=== PATIENT | female | born 1935 | race Caucasian/White ===

== ENCOUNTER → 2023-06-28 09:22 | Outpatient (REF) | payer OTHER, SELFPAY | LOC: RAD 09:22 | PROVIDERS: ATTENDING PHYSICIAN Physician Assistant Medical | DX: E55.9 Vitamin D deficiency, unspecified (principal); Z91.81 History of falling | CPT/HCPCS: 77080 ==

== ENCOUNTER → 2023-09-28 13:43 | Outpatient (REF) | payer OTHER, SELFPAY | LOC: HWRCS 13:43 | PROVIDERS: ATTENDING PHYSICIAN Internal Medicine Interventional Cardiology; FAMILY PHYSICIAN Physician Assistant Medical | DX: I35.1 Nonrheumatic aortic (valve) insufficiency (principal) | CPT/HCPCS: 93306 ==

== ENCOUNTER → 2024-01-22 10:57 | Outpatient (REF) | payer OTHER, SELFPAY | LOC: RAD 10:57 | PROVIDERS: ATTENDING PHYSICIAN Family Medicine | DX: M54.41 Lumbago with sciatica, right side (principal); M25.551 Pain in right hip; M25.552 Pain in left hip | CPT/HCPCS: 72110; 73522 ==

== ENCOUNTER → 2024-02-09 13:16 | Outpatient (REF) | payer OTHER, SELFPAY | LOC: HWRAD 13:16 | PROVIDERS: ATTENDING PHYSICIAN Internal Medicine Endocrinology, Diabetes & Metabolism; FAMILY PHYSICIAN Physician Assistant Medical | DX: E04.2 Nontoxic multinodular goiter (principal) | CPT/HCPCS: 76536 ==

== ENCOUNTER 2024-05-08 17:37 | Emergency (ER) | payer OTHER, SELFPAY ==
[2024-05-08 17:42] VITALS: BP 186/80
--- NOTE | 2024-05-08 17:48 | ED.GENMED ---
ED Provider Triage
<Kristofer Avendaño PA-C - Last Filed: 05/08/24 17:48>
-
Patient seen by provider in Triage?: Seen in Triage
Attestation: A medical screening examination has been initiated by a qualified medical provider. Based on the assessment performed at this time, it has been determined that an emergent medical condition may exist and the patient has been informed
that further medical evaluation and possible additional diagnostic testing may be needed.
HPI: 88-year-old female presents with intermittent headaches and flashes of light that she has been seeing out of both eyes over the past week. Seen by family doctor today and sent in for further evaluation. She denies chest pain. No shortness of
breath. No fever. She is not anticoagulated.
Looks well on assessment in triage. CT head ordered EKG and basic labs ordered
GENERAL: Alert , in no apparent distress
EYE: No visual abnormalities.
NECK: Trachea midline
ENT: No visible abnormalities.
LUNGS: No acute respiratory distress
NEUROLOGICAL: Alert and oriented
SKIN: Skin intact. No visible changes.
MUSCULOSKELETAL: Moving extremities normally
PSYCH: Normal and appropriate interaction.
This is a medical evaluation conducted in person to initiate diagnostic evaluation and provide initial therapeutics. Please see further documentation by the treating clinician.
History of Present Illness
<Kristofer Avendaño PA-C - Last Filed: 05/08/24 17:48>
General
Chief Complaint: Headache
Time Seen by Provider: 05/09/24 03:07
<Sylvain Villa DO - Last Filed: 05/09/24 06:42>
General
Source: patient and family (Daughter)
History of Present Illness
History of Present Illness:
88-year-old female brought to the emergency room by her daughter for evaluation of headache, high blood pressure and floaters. Patient's primary care doctor told her to come to the emergency room and suggested she get an ultrasound of her neck.
Patient does not monitor her blood pressure at home because her device is not working but it appears her primary care doctor thought that her blood pressure might be elevated based upon her symptoms. Patient denies any chest pain or shortness of
breath. She has been compliant with her blood pressure medication. She typically takes it at night.
Phy Exam
<Sylvain Villa DO - Last Filed: 05/09/24 06:42>
Physical Exam
Physical Exam:
General: Awake, Alert, Oriented X3. No acute distress.
Vitals: Hypertensive initially in triage with lower blood pressure now the treatment area
Head: Atraumatic
Eyes: Pupils equal, EOMI
Throat: Airway intact, no exudates
Neck: Trachea midline
Lungs: Clear and equal b/l
Heart: Regular rate, no murmurs
Abd: Soft, Nontender, No pulsatile mass
Neuro: Cranial nerves intact, muscle strength equal bilaterally, cerebellar exam normal
Skin: Warm, dry, no rash
Extremities: pulses equal b/l, no edema
Course
<Kristofer Avendaño PA-C - Last Filed: 05/08/24 17:48>
Orders/Labs/Results
Orders:
Orders
05/08/24 17:44
CT Head W/o Iv Contrast Urgent
Comment:
Reason For Exam: headache, vision change
05/08/24 17:45
Electrocardiogram (*1) Urgent
Reason for Study: TIA/Stroke
EKG- Treatment ONCE
05/08/24 17:59
Complete Blood Count/With Diff Urgent
05/08/24 18:00
Comprehensive Metabolic Panel Urgent
05/09/24 03:18
CT Head & Neck Angio W/wo IV Urgent
Comment:
Reason For Exam: visual disturbance
Abnormal Lab Results
05/08/24 05/08/24
17:59 18:00
WBC 4.1 L 10^3/uL
(4.8-10.8)
MPV 12.4 H fL
(7.4-10.4)
Absolute Lymphs (auto) 1.0 L 10^3/uL
(1.2-3.4)
Sodium 134 L mmol/L
(135-145)
Chloride 96 L mmol/L
(98-107)
Carbon Dioxide 31 H mmol/L
(22-30)
Glucose 134 H mg/dl
(70-99)
05/08/24 17:59
05/08/24 18:00
Vital Signs
Initial and Last Documented VS:
Initial Vital Signs
Temp Pulse Resp BP Pulse Ox
97.6 F 99 18 186/80 98
05/08/24 17:42 05/08/24 17:42 05/08/24 17:42 05/08/24 17:42 05/08/24 17:42
Last Documented Vital Signs
Temp Pulse Resp BP Pulse Ox
97.4 F 88 16 117/79 97
05/08/24 20:19 05/09/24 03:59 05/09/24 03:59 05/09/24 03:59 05/09/24 01:19
<Sylvain HTom Villa DO - Last Filed: 05/09/24 06:42>
Orders/Labs/Results
Orders:
Orders
05/08/24 17:44
CT Head W/o Iv Contrast Urgent
Comment:
Reason For Exam: headache, vision change
05/08/24 17:45
Electrocardiogram (*1) Urgent
Reason for Study: TIA/Stroke
EKG- Treatment ONCE
05/08/24 17:59
Complete Blood Count/With Diff Urgent
05/08/24 18:00
Comprehensive Metabolic Panel Urgent
05/09/24 03:18
CT Head & Neck Angio W/wo IV Urgent
Comment:
Reason For Exam: visual disturbance
Abnormal Lab Results
05/08/24 05/08/24
17:59 18:00
WBC 4.1 L 10^3/uL
(4.8-10.8)
MPV 12.4 H fL
(7.4-10.4)
Absolute Lymphs (auto) 1.0 L 10^3/uL
(1.2-3.4)
Sodium 134 L mmol/L
(135-145)
Chloride 96 L mmol/L
(98-107)
Carbon Dioxide 31 H mmol/L
(22-30)
Glucose 134 H mg/dl
(70-99)
05/08/24 17:59
05/08/24 18:00
Vital Signs
Initial and Last Documented VS:
Initial Vital Signs
Temp Pulse Resp BP Pulse Ox
97.6 F 99 18 186/80 98
05/08/24 17:42 05/08/24 17:42 05/08/24 17:42 05/08/24 17:42 05/08/24 17:42
Last Documented Vital Signs
Temp Pulse Resp BP Pulse Ox
97.4 F 88 16 117/79 97
05/08/24 20:19 05/09/24 03:59 05/09/24 03:59 05/09/24 03:59 05/09/24 01:19
<Sylvain HTom Villa, DO - Last Filed: 05/09/24 06:42>
MDM/Problems Addressed
Differential Diagnosis Includes:
Uncontrolled hypertension, floaters, carotid stenosis
MDM/Problems Addressed:
Patient presents with headache, subjective hypertension, floaters. Workup here reveals no acute abnormality. CTA does not show any significant vascular disease. Patient has been having floaters in her vision for some time however they seem worse
today. Recommend ophthalmology follow-up. No indication for hospitalization at this time. His blood pressure which was elevated on arrival has come down to a much more normal level without intervention.
Chronic conditions affecting care: HTN
<Sylvain Villa DO - Last Filed: 05/09/24 06:42>
*Radiology
Radiology exam reviewed: radiology read reviewed
*Pulse Oximetry
Patient hypoxic: no
*EKG
Interpreted by ED Provider?: Yes
Interpretation: normal
Heart Rate: 89
Rhythm: PVC's
Ischemia: non-specific ST changes
*Kettle Loader Interpretation
Rate: normal
Heart Rate: 89
Rhythm: sinus and PVC's
*Critical Care Note
Total Time (30-74mins, 75-104mins- exclusive of procedures): Not Applicable
ED Attending Note
<Kristofer Avendaño PA-C - Last Filed: 05/08/24 17:48>
-
Portions of this chart may have been created with voice recognition software.� Occasional wrong word or��sound alike� substitutions may have occurred due to the inherent limitations of voice recognition software.
Discharge Plan
Departure
Patient Disposition: Home (Routine Discharge)
Date of Disposition: 05/09/24
Time of Disposition: 05:25
Patient with high blood pressure during this ER visit?: No
Condition: Good
Discharge Problem:
Hypertension, uncontrolled, Floaters in visual field
Instructions: Headache, Adult (DC), Floaters in the Eye, BLOOD PRESSURE
Prescriptions:
No Action
furosemide [Lasix] 40 mg Tablet
40 mg PO Q OTHER DAY
amlodipine 5 mg Tablet
5 mg PO DAILY
valsartan 160 mg Tablet
160 mg PO DAILY
Referrals:
Maine Miranda PA-C [Family Provider] -
Interventions
Interventions:
*Risk Screen - Suicide Last Done: 05/08/24 17:42
*General Assessment Last Done: 05/08/24 17:42
*Neglect/Abuse Screening Last Done: 05/09/24 02:42
ED- Fall Risk Assessment Last Done: 05/09/24 02:42
*ED COVID-19 Vaccine History Last Done: 05/08/24 17:42
ED- Neurological Assessment Last Done: 05/09/24 02:42
Discharge Date and Time
Print Language: CUBAN
[2024-05-08 18:10] LABS: % Basophils 0.7 % (0-2); % Eosinophils 1.7 % (0-6); % Immature Granulocytes 0.2 % (0-0.5); % Lymphocytes 23.8 % (20.5-51.1); % Monocytes 7.5 % (1.7-9.3); % Neutrophils 66.1 % (42.2-75.2); Absolute Eosinophils 0.1 10^3/uL (0-0.7); Absolute Monocytes 0.3 10^3/uL (0.1-0.6); Absolute Neutrophils 2.7 10^3/uL (1.4-6.5); Hematocrit 44.1 % (37.0-47.0); Hemoglobin 14.7 g/dL (12.0-16.0); Mean Corp Hgb Conc. 33.3 g/dL (33.0-37.0); Mean Corpuscular Hgb 28.7 pg (27.0-31.0); Mean Corpuscular Volume 86.1 fL (81.0-99.0); Mean Platelet Volume 12.4 fL (7.4-10.4); Nucleated Red Blood Cells % 0 %; Platelet Count 137 10^3/uL (130-400); Red Blood Cell Count 5.12 10^6/uL (4.20-5.40); Red Cell Dist. Width 12.9 % (11.5-14.5); White Blood Cell Count 4.1 10^3/uL (4.8-10.8)
[2024-05-08 18:26] LABS: ALT (SGPT) 14 U/L (0-35); AST (SGOT) 20 U/L (14-36); Albumin 4.6 g/dl (3.5-5.0); Alkaline Phosphatase 68 U/L (38-126); Blood Urea Nitrogen 17 mg/dl (7-17); Carbon Dioxide 31 mmol/L (22-30); Chloride 96 mmol/L (98-107); Glucose 134 mg/dl (70-99); Potassium 3.6 mmol/L (3.5-5.1); Sodium 134 mmol/L (135-145); Total Bilirubin 0.9 mg/dl (0.2-1.3); Total Protein 6.9 g/dl (6.3-8.2); eGFR > 60.00
[2024-05-08 20:19] VITALS: BP 120/66
[2024-05-09 00:09] VITALS: BP 170/70
[2024-05-09 01:19] VITALS: BP 182/71
[2024-05-09 03:59] VITALS: BP 117/79
== END 2024-05-09 06:08 | disposition home or self-care (01) ==
LOC: EMR 17:37
PROVIDERS: Physician Assistant; EMERGENCY PHYSICIAN Emergency Medicine; FAMILY PHYSICIAN Physician Assistant Medical
DX: H53.8 Other visual disturbances (principal); I10 Essential (primary) hypertension
CPT/HCPCS: 99285; 70450; 70496; 70498; 80053; 85025; 93005; Q9967

== ENCOUNTER → 2024-09-13 11:01 | Outpatient (REF) | payer OTHER, SELFPAY | LOC: RCS 11:01 | PROVIDERS: ATTENDING PHYSICIAN Internal Medicine Interventional Cardiology; FAMILY PHYSICIAN Physician Assistant Medical | DX: I10 Essential (primary) hypertension (principal); I35.1 Nonrheumatic aortic (valve) insufficiency; E78.2 Mixed hyperlipidemia | CPT/HCPCS: 93306 ==